=== PATIENT | female | born 1985 | race Caucasian/White ===

== ENCOUNTER 2017-09-06 11:48 | Emergency (ER) | payer OTHER ==
[~2017-09-06] VITALS: Ht 172.7 cm; Wt 77.0 kg
[2017-09-06 12:14] VITALS: BP 139/86; PULSE 80; RESP 15; TEMP 98.1; O2SAT 100
[2017-09-06] MEDS ORDERED: VALT1TAB PO (13:11)
[2017-09-06] MEDS ORDERED: FERR325T18 PO (13:11)
[2017-09-06] MEDS ORDERED: NUVAMIS VAGINAL (13:11)
[2017-09-06 13:54] LABS: AUTOMATED NEUTROPHIL # 3.7 TH/MM3 (1.8-7.7); BASOPHIL % 0.7 % (0.0-2.0); EOSINOPHIL # 0.1 TH/MM3 (0-0.4); EOSINOPHIL % 0.9 % (0.0-4.0); HEMATOCRIT 39.8 % (35.0-46.0); HEMOGLOBIN 13.3 GM/DL (11.6-15.3); LYMPH % 31.6 % (9.0-44.0); LYMPHOCYTE # 1.9 TH/MM3 (1.0-4.8); MEAN CELL VOLUME 93.4 FL (80.0-100.0); MEAN CORPUSCULAR HEMOGLOBIN 31.2 PG (27.0-34.0); MEAN CORPUSCULAR HGB CONC 33.4 % (32.0-36.0); MEAN PLATELET VOLUME 6.8 FL (7.0-11.0); MONO % 5.4 % (0.0-8.0); MONOCYTE # 0.3 TH/MM3 (0-0.9); NEUT % 61.4 % (16.0-70.0); PLATELET COUNT 359 TH/MM3 (150-450); RED BLOOD COUNT 4.26 MIL/MM3 (4.00-5.30); RED CELL DISTRIBUTION WIDTH 13.7 % (11.6-17.2); WHITE BLOOD COUNT 6.1 TH/MM3 (4.0-11.0)
[2017-09-06 13:59] LABS: AMORPHOUS SEDIMENT, URINE MANY; BILIRUBIN, URINE NEG (NEG); BLOOD, URINE NEG (NEG); GLUCOSE,URINE NEG (NEG); KETONE, URINE NEG (NEG); MUCUS URINE FEW /lpf (OCC); NITRITE,URINE NEG (NEG); URINE COLOR YELLOW (YELLW/STRAW); URINE LEUKOCYTE ESTERASE NEG (NEG)
[2017-09-06] MEDS ORDERED: MECLIZINE HCL 25 MG TAB PO ONE (14:00)
[2017-09-06] MEDS ORDERED: SODIUM CHLOR 0.9% 1000 ML INJ 1,000 ML IV ONE (14:00)
[2017-09-06] MEDS ORDERED: ONDANSETRON HCL 4 MG/2 ML VIAL IVP ONE (14:00)
[2017-09-06] MEDS ORDERED: KETOROLAC TROMETHAMINE 30 MG/ML (IVP) VIAL IVP ONE (14:00)
[2017-09-06 14:02] VITALS: BP_SYST 130; BP_SYST 131; BP_SYST 137; BP_DIAS 70; BP_DIAS 84; BP_DIAS 90; RESP 16; RESP 17; RESP 18
[2017-09-06 14:15] LABS: ALBUMIN 3.8 GM/DL (3.4-5.0); ALT (GPT) 29 U/L (10-53); AST (GOT) 12 U/L (15-37); BICARBONATE 29.7 MEQ/L (21.0-32.0); BLOOD UREA NITROGEN 16 MG/DL (7-18); CALCIUM 8.9 MG/DL (8.5-10.1); CHLORIDE 108 MEQ/L (98-107); GLOMERULAR FILTRATION RATE 83 ML/MIN (>89); GLUCOSE,RANDOM 92 MG/DL (74-106); SODIUM (NA) 142 MEQ/L (136-145)
[2017-09-06 14:18] LABS: ALKALINE PHOSPHATASE 56 U/L (45-117); TOTAL BILIRUBIN ADULT 0.4 MG/DL (0.2-1.0); TOTAL PROTEIN 7.9 GM/DL (6.4-8.2)
[2017-09-06] MEDS ORDERED: ZOFR4TAB3 SL (14:45)
--- NOTE | 2017-09-06 14:45 | PD ---
HPI Chief Complaint: Dizziness Time Seen by Provider: 13:23 Travel History International Travel<30 days: No Contact w/Intl Traveler<30days: No Traveled to known affect area: No History of Present Illness HPI 32-year-old female presents to the emergency department with complaint of dizziness and nausea 3 days. She followed up with her primary care provider yesterday and was sent to do labs, which she did yesterday, and has an order for an outpatient MRI of the brain. Started vomiting today while in the ER waiting room. Denies chest pain, shortness of breath, abdominal pain. Denies fevers, recent illness. Denies hematochezia, hematemesis, hematuria. Denies dysuria. Reports headache and lightheadedness. Says her headache is dull and is relieved with taking aspirin. Reports occasional marijuana use. Otherwise denies other illicit drug use. Rare alcohol use. Denies tobacco use. Dizziness is worse when standing up and certain movements of her head. Better while at rest. Described as sometimes the room is spinning. Symptoms are mild to moderate in severity. No known relieving factors. Has not taken any other medications, besides the aspirin for her headache, for symptom management. Primary care provider is [facility]. No known allergies. History of anemia and takes iron twice daily. Has no other medical complaints. No other modifying factors or associated signs and symptoms. FOR[facility]LY [facility] Past Medical History Anemia: Yes ?: Not LMP: 08/2017 Social History Alcohol Use: Yes (SOCIALLY) Tobacco Use: No (QUIT) Substance Use: No Allergies-Medications (Allergen,Severity, Reaction): Coded Allergies: No Known Allergies (Unverified , 09/06/17) Reported Meds & Prescriptions Reported Meds & Active Scripts Active Zofran Odt (Ondansetron Odt) 4 Mg Tab 4 Mg SL Q8HR PRN Reported Ferrous Sulfate 325 Mg (65 Mg Iron) Tablet 325 Mg PO BIDPC Valtrex (Valacyclovir HCl) 1,000 Mg Tab 1,000 Mg PO DAILY Nuvaring Vaginal Insert (Etonogestrel-Ethinyl Estradiol Vaginal Insert) 0.120- 0.015 Mg/24 Hr Vagring 1 Applic VAGINAL DIRECTED Review of Systems Except as stated in HPI: all other systems reviewed are Neg Physical Exam Narrative GENERAL: Well-nourished, well-developed female patient, in no acute distress SKIN: Warm and dry. HEAD: Atraumatic. Normocephalic. EYES: Pupils equal and round. No scleral icterus. No injection or drainage. ENT: Mucosa pink and moist. Airway patent. NECK: Trachea midline. CARDIOVASCULAR: Regular rate and rhythm. No murmur appreciated. RESPIRATORY: No accessory muscle use. Breath sounds clear and equal bilaterally. No retractions or tachypnea. GASTROINTESTINAL: Abdomen soft, non-tender, nondistended. Bowel sounds active 4 quadrants. Nonrigid. No guarding. MUSCULOSKELETAL: No obvious deformities. No clubbing. No cyanosis. No edema. NEUROLOGICAL: Awake and alert. Oriented 3. No obvious cranial nerve deficits. Motor grossly within normal limits. Normal speech. PSYCHIATRIC: Appropriate mood and affect; insight and judgment normal. Data Data Last Documented VS Vital Signs Date Time Temp Pulse Resp B/P (MAP) Pulse Ox O2 Delivery O2 Flow Rate FiO2 09/06/17 14:02 67 16 131/70 (90) 72 17 130/84 (99) 72 18 137/90 (106) 09/06/17 12:14 98.1 100 Orders Orders Electrocardiogram (09/06/17 12:17) Complete Blood Count With Diff (09/06/17 12:17) Comprehensive Metabolic Panel (09/06/17 12:17) Iv Access Insert/Monitor (09/06/17 12:17) Ed Urine Pregnancytest Poc (09/06/17 12:17) Urinalysis - C+S If Indicated (09/06/17 12:19) Orthostatic Vital Signs (09/06/17 13:33) Sodium Chlor 0.9% 1000 Ml Inj (Ns 1000 M (09/06/17 14:00) Ondansetron Inj (Zofran Inj) (09/06/17 14:00) Ketorolac Inj (Toradol Inj) (09/06/17 14:00) Meclizine (Antivert) (09/06/17 14:00) Ed Discharge Order (09/06/17 15:12) Labs Laboratory Tests Test 09/06/17 13:20 White Blood Count 6.1 TH/MM3 Red Blood Count 4.26 MIL/MM3 Hemoglobin 13.3 GM/DL Hematocrit 39.8 % Mean Corpuscular Volume 93.4 FL Mean Corpuscular Hemoglobin 31.2 PG Mean Corpuscular Hemoglobin Concent 33.4 % Red Cell Distribution Width 13.7 % Platelet Count 359 TH/MM3 Mean Platelet Volume 6.8 FL Neutrophils (%) (Auto) 61.4 % Lymphocytes (%) (Auto) 31.6 % Monocytes (%) (Auto) 5.4 % Eosinophils (%) (Auto) 0.9 % Basophils (%) (Auto) 0.7 % Neutrophils # (Auto) 3.7 TH/MM3 Lymphocytes # (Auto) 1.9 TH/MM3 Monocytes # (Auto) 0.3 TH/MM3 Eosinophils # (Auto) 0.1 TH/MM3 Basophils # (Auto) 0.0 TH/MM3 CBC Comment DIFF FINAL Differential Comment Urine Color YELLOW Urine Turbidity CLOUDY Urine pH 8.0 Urine Specific [place] 1.021 Urine Protein TRACE mg/dL Urine Glucose (UA) NEG mg/dL Urine Ketones NEG mg/dL Urine Occult Blood NEG Urine Nitrite NEG Urine Bilirubin NEG Urine Urobilinogen LESS THAN 2.0 MG/DL Urine Leukocyte Esterase NEG Urine Amorphous Sediment MANY Urine Mucus FEW /lpf Microscopic Urinalysis Comment CULT NOT INDICATED Blood Urea Nitrogen 16 MG/DL Creatinine 0.80 MG/DL Random Glucose 92 MG/DL Total Protein 7.9 GM/DL Albumin 3.8 GM/DL Calcium Level 8.9 MG/DL Alkaline Phosphatase 56 U/L Aspartate Amino Transf (AST/SGOT) 12 U/L Alanine Aminotransferase (ALT/SGPT) 29 U/L Total Bilirubin 0.4 MG/DL Sodium Level 142 MEQ/L Potassium Level 3.9 MEQ/L Chloride Level 108 MEQ/L Carbon Dioxide Level 29.7 MEQ/L Anion Gap 4 MEQ/L Estimat Glomerular Filtration Rate 83 ML/MIN [facility] Medical Decision Making Medical Screen Exam Complete: Yes Emergency Medical Condition: Yes Medical Record Reviewed: Yes Differential Diagnosis Vertigo, dizziness, arrhythmia, anemia, electrolyte imbalance Narrative Course 32-year-old female with nausea and dizziness 3 days. UPT is negative. 1437: CBC unremarkable. CMP unremarkable. Urinalysis without signs of infection. Orthostatic vital signs unremarkable. EKG with normal sinus rhythm and without ST elevation or depression; reviewed by Dr. Rodriges. 1500: Discussed all findings with the patient. Patient eating [employer]. Denies nausea continued vomiting. Instructed patient to continue to follow-up for outpatient MRI. I discussed the patient with Dr. Rodriges and he agrees with discharge. Zofran prescribed for home. Instructed patient to take over- the-counter meclizine as directed and as needed for dizziness. Instructed patient to follow up with primary care provider. Patient verbalizes understanding and agreement with treatment plan. Patient is medically cleared and stable for discharge. Discussed reasons to return to the emergency department. Patient agrees with treatment plan. The patients vital signs are stable and the patient is stable for outpatient follow-up and treatment. Patient discharged home, stable and in no acute distress. Diagnosis Primary Impression: Dizziness Additional Impression: Nausea & vomiting Qualified Codes: R11.2 - Nausea with vomiting, unspecified Referrals: Primary Care Physician Patient Instructions: Dizziness (ED), General Instructions Departure Forms: Tests/Procedures, Work Release Enter return to work date: Sep 08, 2017 Additional Instructions: Meclizine as directed and as needed for dizziness Zofran as prescribed and as needed for nausea/vomiting Avoid aggravating activity Follow-up with primary care provider Return to the emergency department immediately with worsening of symptoms Med/Other Pt SpecificInfo: Prescription(s) given Scripts Ondansetron Odt (Zofran Odt) 4 Mg Tab 4 MG SL Q8HR Y for Nausea/Vomiting, #6 TAB 0 Refills Prov: Jackie Schreiber 09/06/17 Disposition: 01 DISCHARGE HOME Condition: Stable Jackie Schreiber Sep 06, 2017 14:45
--- NOTE | 2017-09-07 19:34 | EKG ---
Date Performed: 09/06/2017 Time Performed: 13:22:15 PTAGE: 32 years EKG: Sinus rhythm POSSIBLE RIGHT VENTRICULAR CONDUCTION DELAY BORDERLINE ECG NO PREVIOUS TRACING DOCTOR: Eliu Cox Interpretating Date/Time 09/07/2017 19:30:59
== END 2017-09-06 16:05 | disposition home or self-care (01) ==
LOC: NEPD 11:48
DX: R42 Dizziness and giddiness (principal); R11.2 Nausea with vomiting, unspecified; F12.90 Cannabis use, unspecified, uncomplicated
CPT/HCPCS: 80053; 81001; 84703; 85025; 93005; 96361; 96374; 96375; 99284; J1885; J2405; J7030